=== PATIENT | female | born 1990 | race Caucasian/White ===

== ENCOUNTER → 2022-08-23 | Outpatient (CLI) | payer BC ==
--- NOTE | 2022-08-23 11:29 | Diagnostic Imaging Report ---
INDICATION: survey. TECHNIQUE: Multiple real-time grayscale images were obtained over the gravid uterus. COMPARISON: None. FINDINGS: There is a single live fetus in a breech presentation. heart rate was recorded at 150 BPM. Placenta is posterior and low lying. Placental tip to the internal os is approximately 2.8 cm. Amniotic fluid index is 14.0 cm. Cervical length is 5.6 cm. kidneys, bladder and stomach are unremarkable. brain is unremarkable. There is a four-chamber heart. There is a three-vessel cord with normal insertion. spine is unremarkable. Biometrical measurements are as follows: Biparietal 4.08 cm, age 18 weeks 3 days. Head circumference 15.84 cm, age 18 weeks 5 days. Abdominal circumference 14.09 cm, age 19 weeks 4 days. Femur length 2.71 cm, age 18 weeks 2 days. Sonographic estimate age: 18 weeks 6 days. Sonographic estimated date of delivery: 01/18/2023. Estimated Weight: 262 gm (+/- 38 gm). LMP percentile: 64%. heart rate: 150 beats per minute. number: 1 of 1. IMPRESSION: Single live IUP of 18 weeks 6 days gestational age. Estimated date of confinement sonographically is 01/18/2023. No complicating features are seen. The posterior placenta is somewhat low lying. Dictated by: Dictated on workstation # [id number]
== END ==
LOC: RAD 09:32
PROVIDERS: ATTEND Obstetrics & Gynecology
DX: Z34.02 Encounter for supervision of normal first pregnancy, second trimester (principal); Z3A.18 18 weeks gestation of pregnancy
CPT/HCPCS: 76805